=== PATIENT | female | born 1990 | race Caucasian/White ===

== ENCOUNTER 2016-10-23 10:01 | Emergency (ER) | payer BC, OTHER ==
[~2016-10-23] VITALS: Ht 160 cm; Wt 65.0 kg
[~2016-10-23 10:01] MED LIST: CLOB20TA PO; ERGO500014 PO; FOLI-49 PO; LAMO100T83 PO; LAMO25TA PO; PANT20TA2 PO
[2016-10-23 10:08] VITALS: Ht 160 cm; Wt 65.0 kg
[2016-10-23] MEDS ORDERED: SOD CHLORIDE 0.9% 500 ML IV STA (10:28)
[2016-10-23] MEDS ORDERED: ONDANSETRON 4 MG INJ IV STA (10:28)
[2016-10-23 10:34] LABS: ADD SCAN DIFF NO
[2016-10-23 10:42] LABS: BASOPHILS % 0.3 % (0.0-2.0); EOSINOPHILS # 0.1 10^3/ul (0.0-0.5); EOSINOPHILS % 1.7 % (0.0-7.0); HEMATOCRIT 39.6 % (37.0-47.0); HEMOGLOBIN 13.2 g/dl (12.0-16.0); LYMPHOCYTES # 3.5 10^3/ul (0.8-2.9); LYMPHOCYTES % 53.8 % (15.0-51.0); MEAN CORPUSCULAR HEMOGLOBIN 30.3 pg (29.0-33.0); MEAN CORPUSCULAR HGB CONC 33.3 g/dl (32.0-37.0); MEAN CORPUSCULAR VOLUME 90.8 fl (82.0-101.0); MONOCYTE # 0.5 10^3/ul (0.3-0.9); MONOCYTES % 8.2 % (0.0-11.0); NEUTROPHIL # 2.3 10^3/ul (1.6-7.5); NEUTROPHILS % 35.8 % (39.0-77.0); PLATELET COUNT 156 10^3/UL (140-415); RED BLOOD COUNT 4.36 10^6/ul (4.20-5.40); WHITE BLOOD COUNT 6.5 10^3/ul (4.8-10.8)
[2016-10-23 10:44] LABS: MEAN PLATELET VOLUME 12.4 fl (7.4-10.4)
[2016-10-23 11:07] LABS: ALBUMIN 3.9 g/dl (3.3-4.9); ALBUMIN/GLOBULIN RATIO 2.05; BILIRUBIN,INDIRECT 0.2 mg/dl (0-1.1); BILIRUBIN,TOTAL 0.2 mg/dl (0.2-1.3); CALCIUM 6.6 mg/dl (8.4-10.2); CREATININE 0.55 mg/dl (0.44-1.00); POTASSIUM 4.1 mmol/L (3.5-5.1); TOTAL PROTEIN 5.8 g/dl (6.1-8.1)
[2016-10-23] MEDS ORDERED: METOCLOPRAMIDE 10 MG INJ IV ONE (12:00)
[2016-10-23] MEDS ORDERED: LORAZEPAM 2 MG INJ IV ONE (12:00)
[2016-10-23 12:51] LABS: ADD UMIC YES; URINE BILIRUBIN (Dip) NEGATIVE (NEGATIVE); URINE BLOOD (Dip) NEGATIVE (NEGATIVE); URINE COLOR YELLOW (YELLOW); URINE GLUCOSE (Dip) NEGATIVE (NEGATIVE); URINE KETONES (Dip) NEGATIVE (NEGATIVE); URINE LEUKOCYTE ESTERASE (Dip) 1+ (NEGATIVE); URINE NITRITE (Dip) POSITIVE (NEGATIVE); URINE TOTAL PROTEIN (Dip) TRACE (NEGATIVE); URINE UROBILINOGEN (Dip) 0.2 E.U./dL (0.1-1.0)
[2016-10-23 13:06] LABS: BACTERIA,URINE MANY
--- NOTE | 2016-10-23 13:56 | RADRPT ---
PROCEDURE: CT Brain without contrast. CLINICAL INDICATION: Altered mental status. Possible seizure. TECHNIQUE: CT scan of the brain was performed on a multidetector high-resolution CT scan. Axial im aging was obtained of the brain without contrast administration. Coronal and sagittal reformatted i mages were obtained from the axial source images. Standard CT scan of the head without contrast prot ocols were performed. The total exam CTDI equals 45.01 mGy and the total exam DLP equals 630.2 mGy-cm. One or more of the following dose reduction techniques were used: - Automated exposure control. - Adjustment of the mA and/or kV according to patient size. Use of iterative reconstruction technique. COMPARISON: CT head without contrast 03/30/2014 there are FINDINGS: The ventricular system and peripheral CSF spaces are unremarkable. Negative for intracranial masses hemorrhages or midline shift. [place]-white matter junction is unremarkable. The paranasal sinuses an d mastoids appear unremarkable. The bones and calvarium are intact. IMPRESSION: No evidence of intracranial masses hemorrhages or midline shift. RPTAT:AAJJ Physician Tahira Date Time Electronically viewed and signed by Physician Tahira on 10/23/2016 13:56 /
[2016-10-23] MEDS ORDERED: CEFTRIAXONE 1 GM/50 ML (PMX) 50 ML IVPB ONE (14:00)
[2016-10-23] MEDS ORDERED: SULF1TAB31 PO (14:23)
[2016-10-23] MEDS ORDERED: ONDA-43 PO (14:24)
[2016-10-23] MEDS ORDERED: METO10TA96 PO (14:24)
--- NOTE | 2016-10-23 14:34 | ERD ---
ER Documentation Chief Complaint Date/Time DATE: 10/23/16 TIME: 14:26 Chief Complaint NAUSEA AND VOMITING STARTED TODAY HPI 26-year-old female presents emergency room with vomiting that began this morning. Is brought in by paramedics and was her [id number] called she went in to check on the patient in her bedroom and found that she had been vomiting. States that she has epigastric pain while she is vomiting. Otherwise she has been healthy recently. Denies fevers and chills. ROS All systems reviewed and are negative except as per history of present illness. Medications Home Meds Active Scripts Ondansetron Hcl* (Zofran*) 4 Mg Tab, 4 MG PO Q6H Y for NAUSEA AND OR VOMITING, # 10 TAB Prov:ERIC MCPHERSON DO 10/23/16 Metoclopramide Hcl* (Metoclopramide Hcl*) 10 Mg Tablet, 10 MG PO Q6H Y for NAUSEA AND OR VOMITING, #20 TAB Prov:ERIC MCPHERSON DO 10/23/16 Sulfamethoxazole/Trimethoprim* (Bactrim Ds* Tablet) 1 Each Tablet, 1 TAB PO BID for 5 Days, TAB Prov:VIDAJOSHERIC DO 10/23/16 Reported Medications Pantoprazole* (Protonix*) 20 Mg Tablet.dr, 20 MG PO DAILY, TAB 10/30/14 Lamotrigine* (Lamotrigine*) 25 Mg Tablet, 50 MG PO BID, TAB 03/30/14 Ergocalciferol* (Drisdol* (Vitamin D2)) 50,000 Unit Capsule, 52866 UNITS PO ONCE A WEEK, CAP 02/21/14 Lamotrigine* (Lamictal*) 100 Mg Tablet, 200 MG PO 2 TIMES A DAY* TAPER, TAB 02/21/14 Folic Acid* (Folic Acid*) 1 Mg Tablet, 1 MG PO DAILY, TAB 02/21/14 Clobazam (Onfi) 20 Mg Tablet, 30 MG PO BID, TAB 02/21/14 Allergies Allergies: Coded Allergies: No Known Allergy (Unverified , 10/30/14) PMhx/Soc History of Surgery: Yes (scoliosis repair) Anesthesia Reaction: No Hx Neurological Disorder: Yes (seizures since 12 y/o) Hx Respiratory Disorders: No Hx Cardiac Disorders: No Hx Psychiatric Problems: No Hx Miscellaneous Medical Probl: No Hx Alcohol Use: No Hx Substance Use: No Hx Tobacco Use: No Smoking Status: Unknown if ever smoked Physical Exam Vitals Vital Signs Date Time Temp Pulse Resp B/P Pulse Ox O2 Delivery O2 Flow Rate FiO2 10/23/16 10:08 97.8 93 18 102/68 95 Physical Exam Const: [] Mild distress, spitting into an emesis basin Head: Atraumatic Eyes: Normal Conjunctiva ENT: Normal External Ears, Nose and Mouth. Neck: Full range of motion..~ No meningismus. Resp: Clear to auscultation bilaterally Cardio: Regular rate and rhythm, no murmurs Abd: Soft, mild epigastric pain without guarding or rebound, non distended. Normal bowel sounds Skin: No petechiae or rashes Back: No midline or flank tenderness Ext: No cyanosis, or edema Neur: Awake and alert and oriented 3, no focal deficit Psych: Normal Mood and Affect Result Diagram: 10/23/16 1020 10/23/16 1020 Results 24 hrs Laboratory Tests Test 10/23/16 10:20 10/23/16 12:30 10/23/16 13:10 White Blood Count 6.510^3/ul Red Blood Count 4.3610^6/ul Hemoglobin 13.2g/dl Hematocrit 39.6% Mean Corpuscular Volume 90.8fl Mean Corpuscular Hemoglobin 30.3pg Mean Corpuscular Hemoglobin Concent 33.3g/dl Red Cell Distribution Width 13.0% Platelet Count 52023^3/UL Mean Platelet Volume 12.4fl Neutrophils % 35.8% Lymphocytes % 53.8% Monocytes % 8.2% Eosinophils % 1.7% Basophils % 0.3% Nucleated Red Blood Cells % 0.0/100WBC Neutrophils # 2.310^3/ul Lymphocytes # 3.510^3/ul Monocytes # 0.510^3/ul Eosinophils # 0.110^3/ul Basophils # 0.010^3/ul Nucleated Red Blood Cells # 0.010^3/ul Sodium Level 147mmol/L Potassium Level 4.1mmol/L Chloride Level 118mmol/L Carbon Dioxide Level 19mmol/L Anion Gap 14 Blood Urea Nitrogen 6mg/dl Creatinine 0.55mg/dl Glucose Level 111mg/dl Calcium Level 6.6mg/dl Total Bilirubin 0.2mg/dl Direct Bilirubin 0.00mg/dl Indirect Bilirubin 0.2mg/dl Aspartate Amino Transf (AST/SGOT) 38IU/L Alanine Aminotransferase (ALT/SGPT) 20IU/L Alkaline Phosphatase 45IU/L Total Protein 5.8g/dl Albumin 3.9g/dl Globulin 1.90g/dl Albumin/Globulin Ratio 2.05 Lipase 112U/L Urine Color YELLOW Urine Clarity SLIGHTLY CLOUDY Urine pH 6.0 Urine Specific [place] 1.025 Urine Ketones NEGATIVE Urine Nitrite POSITIVE Urine Bilirubin NEGATIVE Urine Urobilinogen 0.2 E.U./dL Urine Leukocyte Esterase 1+ Urine Microscopic RBC 2-5/HPF Urine Microscopic WBC 25-50/HPF Urine Epithelial Cells FEW Urine Bacteria MANY Urine Hemoglobin NEGATIVE Urine Glucose NEGATIVE% Urine Total Protein TRACE Lactic Acid Level 1.5mmol/L Current Medications Medications (Trade) Dose Ordered Sig/Prasanna Route PRN Reason Start Time Stop Time Status Last Admin Dose Admin Sodium Chloride (NS) 500 ml @ 500 mls/hr Q1H STAT IV 10/23/16 10:28 10/23/16 11:27 DC 10/23/16 10:40 Ondansetron HCl (Zofran Inj) 4 mg ONCE STAT IV 10/23/16 10:28 10/23/16 10:30 DC 10/23/16 10:40 Metoclopramide HCl (Reglan) 10 mg ONCE ONCE IV 10/23/16 12:00 10/23/16 12:01 DC 10/23/16 11:38 Lorazepam 1 mg 1 mg ONCE ONCE IV 10/23/16 12:00 10/23/16 12:01 DC 10/23/16 11:38 Ceftriaxone Sodium (Rocephin) 50 ml @ 100 mls/hr ONCE ONCE IVPB 10/23/16 14:00 10/23/16 14:29 Procedures/MDM Bladder infection with nausea and vomiting. Patient's arrived and stated the patient had slower mental status than usual and was more somnolent than usual. He states that she does have a seizure disorder with the last seizure being 3 months ago. There was an episode 3 years ago where she had a seizure and then began vomiting. With his no information I ordered a lactic acid and the head CT. As her seizures are generalized tonic-clonic and on his only severe seizures that she vomited after it is unlikely that seizure was the cause today. She did finally provide urine and were found able to find that she had a urinary tract infection. She was somnolent once they took her for the CAT scan and had her transition of the table she immediately fully woke up and stated that she had been very tired earlier but now feels completely well with no nausea. CT head was negative for any acute process. Currently the patient is Henning symptomatic and feeling well. She had been given IV fluid as well as Zofran, Reglan, Ativan. Also gave her a gram of Rocephin since this urinary tract infection had caused such vomiting. Discharge with primary care follow-up in the next few days as well as Bactrim, Zofran ODT and Reglan. Told to return the emergency room for any concerning symptoms whatsoever. CT head interpretation: I see no acute process, no hemorrhage, no mass-effect no midline shift, no skull fracture. Departure Diagnosis: Primary Impression: Bladder infection Additional Impression: Nausea and vomiting Condition: Stable Patient Instructions: Understanding Urinary Tract Infections (UTIs), Nausea and Vomiting-Adult Additional Instructions: Call your primary care doctor TOMORROW for an appointment during the next 2-3 days.See the doctor sooner or return here if your condition worsens before your appointment time. ERIC MCPHERSON DO Oct 23, 2016 14:34
[2016-10-23 15:37] VITALS: BP 109/74; PULSE 79; RESP 18
== END 2016-10-23 15:38 | disposition home or self-care (01) ==
LOC: E/R 10:01
DX: N30.90 Cystitis, unspecified without hematuria (principal); R41.82 Altered mental status, unspecified
CPT/HCPCS: 70450; 80053; 81001; 83605; 83690; 85025; J0696; J2060; J2405; J2765; J7040; 96374; 96375; P9612